=== PATIENT | male | born 1945 | race Caucasian/White ===

== ENCOUNTER 2017-05-28 16:06 | Emergency (ER) | payer OTHER ==
--- NOTE | 2017-05-28 18:57 | DIAGNOSTIC IMAGING REPORT ---
PROCEDURE: XR SHOULDER 2 OR MORE VW-LEFT INDICATION: TRAUMA/INJURY TECHNIQUE: Three views. COMPARISON: None. FINDINGS: Mild arthritic change of the acromion and left acromioclavicular joint. Left glenohumeral joint is normal. Osseous structures and joint spaces are otherwise normal. IMPRESSION: 1. Mild degenerative changes of the acromion and left acromioclavicular joint (may predispose to impingement). 2. Otherwise negative left shoulder.
--- NOTE | 2017-05-28 19:02 | ED CLINICAL REPORT ---
Clinical Report - Physicians/Mid Levels [facility] [address] [place] [address] 05/28/2017 16:16 Patient: BELEN HAAS Time Seen: 17:19; initial patient contact, initial documentation, patient care assumed. Arrived- By private vehicle. Historian- patient. HISTORY OF PRESENT ILLNESS Chief Complaint: Injury to left shoulder. The injury happened last night. Occurred at home. ( lifting 70lb suitcase and felt pain in shoulder). Patient is experiencing severe pain. Patient denies injury to the head or neck. No other injury. REVIEW OF SYSTEMS No swelling, tingling, numbness, weakness or suspected foreign body. No skin laceration. All systems otherwise negative, except as recorded above. PAST HISTORY See nurses notes. Hypertension. Surgeries: Right shoulder surgery. (R elbow). SOCIAL HISTORY Never smoker. No alcohol use or drug use. No recent travel. Is a local resident. He lives with spouse. FAMILY HISTORY No significant family medical history. ADDITIONAL NOTES The nursing notes have been reviewed with agreement regarding the chief complaint, HPI, ROS, PMH and patient medications and allergies. PHYSICAL EXAM Vital Signs: 05/28/2017 16:50 BP: 142/82. HR: 70. RR: 18. O2 saturation: 96%. Temp: 98.2 F. Pain level now: 10/10. Have been reviewed as normal and appear to be correct. Appearance: Alert. Oriented X3. No acute distress. Head: Head atraumatic. Eyes: Pupils equal, round and reactive to light. Eyes normal inspection. Respiratory: No respiratory distress. Back: Normal inspection. No tenderness. ROM normal. Skin: Skin intact. Skin warm and dry. Normal skin color. Normal skin turgor. Extremities: Abnormal external inspection. Extremity tenderness. Left acromio-clavicular joint: moderate tenderness and mild swelling. No erythema, laceration, abrasion, ecchymosis or deformity. Shoulder injury present. Shoulder otherwise negative. Severely decreased range of motion left shoulder with limited abduction, adduction, internal rotation, external rotation, flexion and extension (secondary to pain). Shoulder held in adduction. Extremities otherwise negative. Neuro, Vascular and Tendons: Sensation intact. Motor intact. Vascular status intact. Tendon function intact. Tendon visualized, uninjured. Neuro: Oriented X 3. No motor deficit. No sensory deficit. Note: isolated injury to shoulder. LABS, X-RAYS, AND EKG X-Rays: Left shoulder negative. Lt Shoulder X-ray: (IMPRESSION: 1. Mild degenerative changes of the acromion and left acromioclavicular joint (may predispose to impingement). 2. Otherwise negative left shoulder. Electronically Final signed by:Lucas Chaudhari MD 05/28/2017 6:51:17 PM). The X-rays were interpreted by the radiologist and contemporaneously by me. PROGRESS AND PROCEDURES Course of Care: tx options discussed, pt on pain contract and pain management, so he has pain pills, would like something to help him sleep. Patient counseled in person regarding the patient's stable condition, test results and diagnosis. Differential Diagnosis: I considered fracture, stress fracture, degenerative joint disease, arthritis, sprain, hyperextension, dislocation, rotator cuff tear, acromioclavicular separation, lateral epicondylitis, soft tissue injury, soft tissue hematoma, tendonitis, myositis, fasciitis and bursitis as a possible cause of upper extremity pain in this patient. This is a partial list of diagnoses considered. Above considerations are based on history, physical exam, reassessment and X-Ray data. Differential diagnosis was discussed with patient. Disposition: Discharged home in good and improved condition (19:01). Condition: good and stable. CLINICAL IMPRESSION Muscle strain of the left rotator cuff at the shoulder. INSTRUCTIONS Warnings: GENERAL WARNINGS: Return or contact your physician immediately if your condition worsens or changes unexpectedly, if not improving as expected, or if other problems arise. Specifically return if problem worsens. Prescription Medications: Xanax 0.25 mg: Take 1 orally every 8 hours as needed for anxiety. Dispense fifteen (15). No refills. Substitution is permissible. Follow-up: Follow up with your doctor in about one week as needed. Call for an appointment. Summary of care provided to patient. Understanding of the discharge instructions verbalized by patient. (Electronically signed by Nicolasa Bowman A.R.N.P. 05/28/2017 22:26)
--- NOTE | 2017-05-28 19:02 | ED ORDER SUMMARY ---
..... Patient: BELEN HAAS OrderSheet [facility] VisitID: [id number] [place] [address] 72y, M Registration Date/Time: 05/28/2017 ORDER SHEET Weight: 95.2 kg (stated) Allergies: Codeine GENERAL ORDERS: Shoulder 2V or more Left Urgent (17:31 05/28/2017 HBivens A.R.N.P.) (Ack 17:33 PWeiler ER Tech1) (17:53 DDean R.N.) MEDICATION ORDERS: Toradol IM 60 mg (NOW) (17:51 05/28/2017 HBivens A.R.N.P.) (Ack 18:02 GMarshall R.N.) (18:11 GMarshall R.N.) IV FLUIDS: ORDER SHEET NOTES: [Electronically signed by Melody Reyes R.N. (20:11 05/28/2017)] [Electronically signed by Nicolasa Bowman.R.N.P. (22:26 05/28/2017)] [Electronically locked/signed by Melody Reyes R.N. (20:11 05/28/2017)]
--- NOTE | 2017-05-28 19:02 | ED NURSING NOTES ---
Clinical Report - Nurses [facility] [address] [place] [address] 05/28/2017 16:16 Patient: BELEN HAAS TRIAGE Triage time 1650. Acuity: LEVEL 4. Chief Complaint: INJURY TO LEFT SHOULDER. --17:02 Melody Reyes R.N. 16:50 05/28/17. BP: 142/82. HR: 70. RR: 18. O2 saturation: 96%. Temp: 98.2 F. Pain level now: 08/17. --17:02 Melody Reyes R.N. Weight: 95.2 kg stated. Height/Length: 70 inches Per Patient. BMI: 30.1. --16:59 Melody Reyes R.N. Medications Atenolol Oral 25 mg, daily. CeleBREX Oral 100 mg, daily. Hydrocodone-Acetaminophen Oral 5 mg, as needed (her took 2 last night at 2300 and then 2 more tabs at 0330, and 0800 2 more --Not helping ). Multi Vitamin Mens Oral. --16:56 Melody Reyes R.N. Allergies Codeine.(nausea, vomiting) --16:55 Melody Reyes R.N. History Arrived by private vehicle. Historian: patient. Accompanied by spouse. Primary physician (Belen Kimble, [facility]). This occurred last night. Mechanism of injury: (lifting 70 pound item up high- states shoulder" feels like sharp hot ice picks " - also a constant throb). PAST MEDICAL HX: Hypertension. ( right hip pain- had pain contract). SURGERY HX: Right shoulder surgery. ( rt elbow, rt rotator cuff). SOCIAL HX: Never smoker. No alcohol use or drug use. --17:02 Melody Reyes R.N. Interventions ID band on patient. To treatment room. --17:02 Melody Reyes R.N. PHYSICAL ASSESSMENT 17:02 05/28/17. Ambulatory to room. GENERAL / NEURO / PSYCH: Oriented X 4. Appears in pain. EXTREMITIES: Capillary refill is less than 2 seconds in the extremities. Extremity pulses are within normal limits. Neuro-vascular status intact to the extremity. Left shoulder: tenderness. Limited ROM. SKIN: Skin is warm and dry. --17:02 Melody Reyes R.N. NURSING PROGRESS NOTES 17:02. Cold pack applied. Patient identifiers checked. Call light placed in reach. Side rails up. Bed placed in lowest position. Patient ready for evaluation- chart flagged. --17:53 Melody Reyes R.N. 17:30. Patient walked to radiology with tech. --17:53 Melody Reyes R.N. 17:40. Patient walked back to ED from radiology with tech. --17:53 Melody Reyes R.N. 18:06 05/28/2017 Toradol (Ketorolac Tromethamine) IM 60 mg given. --18:11 Arron العلي R.N. 18:40. Sling applied to left arm by breed to wean production technician; distal pulses intact, sensation intact and motor function within normal limits (by indigo Ahn [facility]). --20:09 Melody Reyes R.N. DISPOSITION / DISCHARGE 19:05. Condition at departure: stable. No learning barriers present. Discharge instructions provided and reviewed with the patient and spouse. Treatments reviewed (ice, elevate, sling). Patient and spouse verbalized understanding. Written instructions provided in Japanese. The patient was discharged home and accompanied by spouse. He left the Emergency Department ambulatory and via private vehicle. Spouse driving. --20:08 Melody Reyes R.N. 19:05 05/28/17. BP: 140/86. HR: 74. RR: 18. O2 saturation: 98%. Temp: deferred. Pain level now: 06/17. --20:08 Melody Reyes R.N. Locked/Released at 05/28/2017 20:11 by Melody Reyes R.N.
--- NOTE | 2017-05-28 19:02 | ED NURSING NOTES ---
Clinical Report - Nurses [facility] [address] [place] [address] 05/28/2017 16:16 Patient: BELEN HAAS TRIAGE Triage time 1650. Acuity: LEVEL 4. Chief Complaint: INJURY TO LEFT SHOULDER. --17:02 Melody Reyes R.N. 16:50 05/28/17. BP: 142/82. HR: 70. RR: 18. O2 saturation: 96%. Temp: 98.2 F. Pain level now: 08/17. --17:02 Melody Reyes R.N. Weight: 95.2 kg stated. Height/Length: 70 inches Per Patient. BMI: 30.1. --16:59 Melody Reyes R.N. Medications Atenolol Oral 25 mg, daily. CeleBREX Oral 100 mg, daily. Hydrocodone-Acetaminophen Oral 5 mg, as needed (her took 2 last night at 2300 and then 2 more tabs at 0330, and 0800 2 more --Not helping ). Multi Vitamin Mens Oral. --16:56 Melody Reyes R.N. Allergies Codeine.(nausea, vomiting) --16:55 Melody Reyes R.N. History Arrived by private vehicle. Historian: patient. Accompanied by spouse. Primary physician (Belen Kimble, [facility]). This occurred last night. Mechanism of injury: (lifting 70 pound item up high- states shoulder" feels like sharp hot ice picks " - also a constant throb). PAST MEDICAL HX: Hypertension. ( right hip pain- had pain contract). SURGERY HX: Right shoulder surgery. ( rt elbow, rt rotator cuff). SOCIAL HX: Never smoker. No alcohol use or drug use. --17:02 Melody Reyes R.N. Interventions ID band on patient. To treatment room. --17:02 Melody Reyes R.N. PHYSICAL ASSESSMENT 17:02 05/28/17. Ambulatory to room. GENERAL / NEURO / PSYCH: Oriented X 4. Appears in pain. EXTREMITIES: Capillary refill is less than 2 seconds in the extremities. Extremity pulses are within normal limits. Neuro-vascular status intact to the extremity. Left shoulder: tenderness. Limited ROM. SKIN: Skin is warm and dry. --17:02 Melody Reyes R.N. NURSING PROGRESS NOTES 17:02. Cold pack applied. Patient identifiers checked. Call light placed in reach. Side rails up. Bed placed in lowest position. Patient ready for evaluation- chart flagged. --17:53 Melody Reyes R.N. 17:30. Patient walked to radiology with tech. --17:53 Melody Reyes R.N. 17:40. Patient walked back to ED from radiology with tech. --17:53 Melody Reyes R.N. 18:06 05/28/2017 Toradol (Ketorolac Tromethamine) IM 60 mg given. --18:11 Arron العلي R.N. 18:40. Sling applied to left arm by septic tank service technician; distal pulses intact, sensation intact and motor function within normal limits (by indigo Ahn [facility]). --20:09 Melody Reyes R.N. DISPOSITION / DISCHARGE 19:05. Condition at departure: stable. No learning barriers present. Discharge instructions provided and reviewed with the patient and spouse. Treatments reviewed (ice, elevate, sling). Patient and spouse verbalized understanding. Written instructions provided in Spanish. The patient was discharged home and accompanied by spouse. He left the Emergency Department ambulatory and via private vehicle. Spouse driving. --20:08 Melody Reyes R.N. 19:05 05/28/17. BP: 140/86. HR: 74. RR: 18. O2 saturation: 98%. Temp: deferred. Pain level now: 06/17. --20:08 Melody Reyes R.N. Locked/Released at 05/28/2017 20:11 by Melody Reyes R.N.
--- NOTE | 2017-05-28 19:02 | ED ORDER SUMMARY ---
..... Patient: BELEN HAAS OrderSheet [facility] VisitID: [id number] [place] [address] 72y, M Registration Date/Time: 05/28/2017 ORDER SHEET Weight: 95.2 kg (stated) Allergies: Codeine GENERAL ORDERS: Shoulder 2V or more Left Urgent (17:31 05/28/2017 HBivens A.R.N.P.) (Ack 17:33 PWeiler ER Tech1) (17:53 DDean R.N.) MEDICATION ORDERS: Toradol IM 60 mg (NOW) (17:51 05/28/2017 HBivens A.R.N.P.) (Ack 18:02 GMarshall R.N.) (18:11 GMarshall R.N.) IV FLUIDS: ORDER SHEET NOTES: [Electronically signed by Melody Reyes R.N. (20:11 05/28/2017)] [Electronically signed by Nicolasa Bowman.R.N.P. (22:26 05/28/2017)] [Electronically locked/signed by Melody Reyes R.N. (20:11 05/28/2017)]
--- NOTE | 2017-05-28 22:26 | ED MED RECONCILIATION SUMMARY ---
Patient: BELEN HAAS Medication Reconciliation Report [facility] VisitID: [id number] [place] [address] 72y, M Registration Date/Time: 05/28/2017 Weight: 95.2 kg Height/Length: 70 in. BMI: 30.1 ALLERGIES: Codeine The patient's Home Medications are listed below: THE FOLLOWING MEDICATIONS NEED TO BE RECONCILED: Atenolol Oral 25 mg, daily CeleBREX Oral 100 mg, daily Hydrocodone-Acetaminophen Oral 5 mg, her took 2 last night at 2300 and then 2 more tabs at 0330, and 0800 2 more --Not helping Multi Vitamin Mens Oral The source(s) of the original Home Medication information: Not obtained. The following Medications were given to the patient in the Emergency Department: Toradol [IM] IM 60 mg, administered: 05/28/2017 6:06:00 PM The following Medications were prescribed to the patient: Xanax 0.25 mg: Take 1 orally every 8 hours as needed for anxiety. Dispense fifteen (15). No refills. Substitution is permissible. -- Nicolasa Bowman A.R.N.P.
--- NOTE | 2017-05-28 22:26 | ED MAR SUMMARY ---
..... Medication Administration Record [facility] [address] [place] [address] Patient: BELEN HAAS Visit ID: [id number] 72y, M Weight: 95.2 kg Height/Length: 70 in BMI: 30.1 ALLERGIES: Codeine Given 18:06 05/28/2017 Arron العلي R.N. Medication Administered: TORADOL [IM] (KETOROLAC TROMETHAMINE), Dose: 60 mg IM. Medication Ordered: Toradol IM 60 mg (NOW).
--- NOTE | 2017-05-28 22:26 | ED MED RECONCILIATION SUMMARY ---
Patient: BELEN HAAS Medication Reconciliation Report [facility] VisitID: [id number] [place] [address] 72y, M Registration Date/Time: 05/28/2017 Weight: 95.2 kg Height/Length: 70 in. BMI: 30.1 ALLERGIES: Codeine The patient's Home Medications are listed below: THE FOLLOWING MEDICATIONS NEED TO BE RECONCILED: Atenolol Oral 25 mg, daily CeleBREX Oral 100 mg, daily Hydrocodone-Acetaminophen Oral 5 mg, her took 2 last night at 2300 and then 2 more tabs at 0330, and 0800 2 more --Not helping Multi Vitamin Mens Oral The source(s) of the original Home Medication information: Not obtained. The following Medications were given to the patient in the Emergency Department: Toradol [IM] IM 60 mg, administered: 05/28/2017 6:06:00 PM The following Medications were prescribed to the patient: Xanax 0.25 mg: Take 1 orally every 8 hours as needed for anxiety. Dispense fifteen (15). No refills. Substitution is permissible. -- Nicolasa Bowman A.R.N.P.
--- NOTE | 2017-05-28 22:26 | ED DISCHARGE INSTRUCTIONS ---
Patient: BELEN HAAS General Instructions [facility] VisitID: [id number] [place] [address] 72y, M Registration Date/Time: 05/28/2017 Muscle strain of the left rotator cuff at the shoulder. INSTRUCTIONS Warnings: GENERAL WARNINGS: Return or contact your physician immediately if your condition worsens or changes unexpectedly, if not improving as expected, or if other problems arise. Specifically return if problem worsens. Prescription Medications: Xanax 0.25 mg: Take 1 orally every 8 hours as needed for anxiety. Dispense fifteen (15). No refills. Substitution is permissible. Follow-up: Follow up with your doctor in about one week as needed. Call for an appointment. Summary of care provided to patient. Understanding of the discharge instructions verbalized by patient. ADDITIONAL INFORMATION Muscle Strain,Extremity A MUSCLE STRAIN is a stretching and tearing of muscle fibers. This causes pain, especially with motion of that muscle. There may also be some swelling and bruising. Home Care: 1) Keep the injured area raised to reduce pain and swelling. This is especially important during the first 48 hours. 2) Make an ice pack (ice cubes in a plastic bag, wrapped in a towel) and apply for 20 minutes every 1-2 hours the first day. You should continue with ice packs 3-4 times a day for the second and third days. Unless otherwise instructed, on the fourth day you may begin hot soaks or hot packs (small towel soaked in hot water) 3-4 times a day while you gently exercise the involved area. 3) You may use acetaminophen (Tylenol) or ibuprofen (Motrin, Advil) to control pain, unless another medicine was prescribed. [ NOTE : If you have chronic liver or kidney disease or ever had a stomach ulcer or GI bleeding, talk with your doctor before using these medicines.] 4) For LEG STRAINS: If CRUTCHES have been recommended, do not bear full weight on the injured leg until you can do so without pain. You may return to sports when you are able to hop and run on the injured leg without pain. Follow Up with your doctor or this facility if you are not improving within the next five days. Get Prompt Medical Attention if any of the following occur: -- Fingers or toes become swollen, cold, blue, numb or tingly -- Pain or swelling increases Alprazolam Oral tablet What is this medicine? ALPRAZOLAM (stephanie sanders lopez) is a benzodiazepine. It is used to treat anxiety and panic attacks. How should I use this medicine? Take this medicine by mouth with a glass of water. Follow the directions on the prescription label. Take your medicine at regular intervals. Do not take it more often than directed. If you have been taking this medicine regularly for some time, do not suddenly stop taking it. You must gradually reduce the dose or you may get severe side effects. Ask your doctor or health pet care attendant for advice. Even after you stop taking this medicine it can still affect your body for several days. Talk to your forest fire lookout regarding the use of this medicine in children. Special care may be needed. What side effects may I notice from receiving this medicine? Side effects that you should report to your doctor or health pet care attendant as soon as possible: allergic reactions like skin rash, itching or hives, swelling of the face, lips, or tongue confusion, forgetfulness depression difficulty sleeping difficulty speaking feeling faint or lightheaded, falls mood changes, excitability or aggressive behavior muscle cramps trouble passing urine or change in the amount of urine unusually weak or tired Side effects that usually do not require medical attention (report to your doctor or health pet care attendant if they continue or are bothersome): change in sex drive or performance changes in appetite What may interact with this medicine? Do not take this medicine with any of the following medications: certain medicines for HIV infection or AIDS ketoconazole itraconazole This medicine may also interact with the following medications: control pills certain macrolide antibiotics like clarithromycin, erythromycin, troleandomycin cimetidine cyclosporine ergotamine grapefruit juice herbal or dietary supplements like kava kava, melatonin, dehydroepiandrosterone, DHEA, Olean's Wort or valerian imatinib, [id number] isoniazid levodopa medicines for depression, anxiety, or psychotic disturbances prescription pain medicines rifampin, rifapentine, or rifabutin some medicines for blood pressure or heart problems some medicines for seizures like carbamazepine, oxcarbazepine, phenobarbital, phenytoin, primidone What if I miss a dose? If you miss a dose, take it as soon as you can. If it is almost time for your next dose, take only that dose. Do not take double or extra doses. Where should I keep my medicine? Keep out of the reach of children. This medicine can be abused. Keep your medicine in a safe place to protect it from theft. Do not share this medicine with anyone. Selling or giving away this medicine is dangerous and against the law. Store at room temperature between 20 and 25 degrees C (68 and 77 degrees F). Throw away any unused medicine after the expiration date. What should I tell my health care provider before I take this medicine? They need to know if you have any of these conditions: an alcohol or drug abuse problem bipolar disorder, depression, psychosis or other mental health conditions glaucoma kidney or liver disease lung or breathing disease myasthenia gravis Parkinson's disease porphyria seizures or a history of seizures suicidal thoughts an unusual or allergic reaction to alprazolam, other benzodiazepines, foods, dyes, or preservatives or trying to get breast-feeding What should I watch for while using this medicine? Visit your doctor or health pet care attendant for regular checks on your progress. Your body can become dependent on this medicine. Ask your doctor or health pet care attendant if you still need to take it. You may get drowsy or dizzy. Do not drive, use machinery, or do anything that needs mental alertness until you know how this medicine affects you. To reduce the risk of dizzy and fainting spells, do not stand or sit up quickly, especially if you are an older patient. Alcohol may increase dizziness and drowsiness. Avoid alcoholic drinks. Do not treat yourself for coughs, colds or allergies without asking your doctor or health pet care attendant for advice. Some ingredients can increase possible side effects. You have been given the following additional information: Muscle Strain, Extremity Alprazolam Oral tablet (Electronically signed by Nicolasa Bowman A.R.N.P. 05/28/2017 22:26)
--- NOTE | 2017-05-28 22:26 | ED MAR SUMMARY ---
..... Medication Administration Record [facility] [address] [place] [address] Patient: BELEN HAAS Visit ID: [id number] 72y, M Weight: 95.2 kg Height/Length: 70 in BMI: 30.1 ALLERGIES: Codeine Given 18:06 05/28/2017 Arron العلي R.N. Medication Administered: TORADOL [IM] (KETOROLAC TROMETHAMINE), Dose: 60 mg IM. Medication Ordered: Toradol IM 60 mg (NOW).
--- NOTE | 2017-05-28 22:26 | ED DISCHARGE INSTRUCTIONS ---
Patient: BELEN HAAS General Instructions [facility] VisitID: [id number] [place] [address] 72y, M Registration Date/Time: 05/28/2017 Muscle strain of the left rotator cuff at the shoulder. INSTRUCTIONS Warnings: GENERAL WARNINGS: Return or contact your physician immediately if your condition worsens or changes unexpectedly, if not improving as expected, or if other problems arise. Specifically return if problem worsens. Prescription Medications: Xanax 0.25 mg: Take 1 orally every 8 hours as needed for anxiety. Dispense fifteen (15). No refills. Substitution is permissible. Follow-up: Follow up with your doctor in about one week as needed. Call for an appointment. Summary of care provided to patient. Understanding of the discharge instructions verbalized by patient. ADDITIONAL INFORMATION Muscle Strain,Extremity A MUSCLE STRAIN is a stretching and tearing of muscle fibers. This causes pain, especially with motion of that muscle. There may also be some swelling and bruising. Home Care: 1) Keep the injured area raised to reduce pain and swelling. This is especially important during the first 48 hours. 2) Make an ice pack (ice cubes in a plastic bag, wrapped in a towel) and apply for 20 minutes every 1-2 hours the first day. You should continue with ice packs 3-4 times a day for the second and third days. Unless otherwise instructed, on the fourth day you may begin hot soaks or hot packs (small towel soaked in hot water) 3-4 times a day while you gently exercise the involved area. 3) You may use acetaminophen (Tylenol) or ibuprofen (Motrin, Advil) to control pain, unless another medicine was prescribed. [ NOTE : If you have chronic liver or kidney disease or ever had a stomach ulcer or GI bleeding, talk with your doctor before using these medicines.] 4) For LEG STRAINS: If CRUTCHES have been recommended, do not bear full weight on the injured leg until you can do so without pain. You may return to sports when you are able to hop and run on the injured leg without pain. Follow Up with your doctor or this facility if you are not improving within the next five days. Get Prompt Medical Attention if any of the following occur: -- Fingers or toes become swollen, cold, blue, numb or tingly -- Pain or swelling increases Alprazolam Oral tablet What is this medicine? ALPRAZOLAM (stephanie sanders lopez) is a benzodiazepine. It is used to treat anxiety and panic attacks. How should I use this medicine? Take this medicine by mouth with a glass of water. Follow the directions on the prescription label. Take your medicine at regular intervals. Do not take it more often than directed. If you have been taking this medicine regularly for some time, do not suddenly stop taking it. You must gradually reduce the dose or you may get severe side effects. Ask your doctor or health assistant child care teacher for advice. Even after you stop taking this medicine it can still affect your body for several days. Talk to your youth manager regarding the use of this medicine in children. Special care may be needed. What side effects may I notice from receiving this medicine? Side effects that you should report to your doctor or health assistant child care teacher as soon as possible: allergic reactions like skin rash, itching or hives, swelling of the face, lips, or tongue confusion, forgetfulness depression difficulty sleeping difficulty speaking feeling faint or lightheaded, falls mood changes, excitability or aggressive behavior muscle cramps trouble passing urine or change in the amount of urine unusually weak or tired Side effects that usually do not require medical attention (report to your doctor or health assistant child care teacher if they continue or are bothersome): change in sex drive or performance changes in appetite What may interact with this medicine? Do not take this medicine with any of the following medications: certain medicines for HIV infection or AIDS ketoconazole itraconazole This medicine may also interact with the following medications: control pills certain macrolide antibiotics like clarithromycin, erythromycin, troleandomycin cimetidine cyclosporine ergotamine grapefruit juice herbal or dietary supplements like kava kava, melatonin, dehydroepiandrosterone, DHEA, Harlem's Wort or valerian imatinib, [id number] isoniazid levodopa medicines for depression, anxiety, or psychotic disturbances prescription pain medicines rifampin, rifapentine, or rifabutin some medicines for blood pressure or heart problems some medicines for seizures like carbamazepine, oxcarbazepine, phenobarbital, phenytoin, primidone What if I miss a dose? If you miss a dose, take it as soon as you can. If it is almost time for your next dose, take only that dose. Do not take double or extra doses. Where should I keep my medicine? Keep out of the reach of children. This medicine can be abused. Keep your medicine in a safe place to protect it from theft. Do not share this medicine with anyone. Selling or giving away this medicine is dangerous and against the law. Store at room temperature between 20 and 25 degrees C (68 and 77 degrees F). Throw away any unused medicine after the expiration date. What should I tell my health care provider before I take this medicine? They need to know if you have any of these conditions: an alcohol or drug abuse problem bipolar disorder, depression, psychosis or other mental health conditions glaucoma kidney or liver disease lung or breathing disease myasthenia gravis Parkinson's disease porphyria seizures or a history of seizures suicidal thoughts an unusual or allergic reaction to alprazolam, other benzodiazepines, foods, dyes, or preservatives or trying to get breast-feeding What should I watch for while using this medicine? Visit your doctor or health assistant child care teacher for regular checks on your progress. Your body can become dependent on this medicine. Ask your doctor or health assistant child care teacher if you still need to take it. You may get drowsy or dizzy. Do not drive, use machinery, or do anything that needs mental alertness until you know how this medicine affects you. To reduce the risk of dizzy and fainting spells, do not stand or sit up quickly, especially if you are an older patient. Alcohol may increase dizziness and drowsiness. Avoid alcoholic drinks. Do not treat yourself for coughs, colds or allergies without asking your doctor or health assistant child care teacher for advice. Some ingredients can increase possible side effects. You have been given the following additional information: Muscle Strain, Extremity Alprazolam Oral tablet (Electronically signed by Nicolasa Bowman A.R.N.P. 05/28/2017 22:26)
== END 2017-05-28 19:05 | disposition home or self-care (01) ==
LOC: ED SRH 16:06
DX: S46.012A Strain of muscle(s) and tendon(s) of the rotator cuff of left shoulder, initial encounter (principal); X50.0XXA Overexertion from strenuous movement or load, initial encounter; Y93.89 Activity, other specified; Y92.019 Unspecified place in single-family (private) house as the place of occurrence of the external cause; Y99.8 Other external cause status; I10 Essential (primary) hypertension; Z79.899 Other long term (current) drug therapy; Z88.5 Allergy status to narcotic agent